=== PATIENT | male | born 1930 | race Caucasian/White ===

== ENCOUNTER → 2017-03-22 12:07 | Outpatient (CLI) | payer MEDICARE ==
[2015-01-11 09:47] VITALS: BMI 27.6
[~2017-03-22 12:07] MED LIST: ASPIRIN EC81 M1 PO; COLACE100 MG PO; COUMADIN2 MG PO; COUMADIN2.5 MG PO; COUMADIN6 MG PO; DEXAMETHASONE2 MG PO; DIPHEDRYL25 MG PO; FLOMAX0.4 MG PO; HEPARIN SOD5000 U/ML IV; HYDROCODON-ACE1 EAC6 PO; JANTOVEN1 MG PO; JANTOVEN3 MG PO; K-DUR20 MEQ PO; KEPPRA500 MG PO; LIPITOR40 MG PO; LOPRESSOR25 MG PO; METOPROLOL TART50 MG PO; PEPCID20 MG PO; PERCOCET 5-3251 TAB PO; SOMINEX PO; WARFARIN PO; ZESTORETIC 20-1 EACH PO
== END | disposition home or self-care (01) ==
LOC: D.US 12:07
DX: I65.23 Occlusion and stenosis of bilateral carotid arteries (principal); I73.9 Peripheral vascular disease, unspecified; M79.604 Pain in right leg

== ENCOUNTER → 2017-04-01 14:34 | Outpatient (CLI) | payer MEDICARE ==
[2015-01-11 09:47] VITALS: BMI 27.6
== END | disposition home or self-care (01) ==
LOC: D.CT 14:34
DX: I73.9 Peripheral vascular disease, unspecified (principal); M79.605 Pain in left leg; M79.604 Pain in right leg

== ENCOUNTER 2018-01-05 06:22 | Outpatient (CLI) | payer MEDICARE ==
[~2018-01-05] VITALS: Ht 175.3 cm; Wt 72.7 kg
--- NOTE | ~2018-01-05 | HEMODYNAMI ---
PATIENT:NIR ALVARADO MEDICAL RECORD: [id number] : 34 [id number] ADMISSION DATE: 01/05/18 Generatedon:01/05/201810:38 Patient name: NIR ALVARADO Patient #: [id number] SSN: DO B: 1930 Date of study: 01/05/2018 Page: Of Hemodynamic Procedure Report Patient Data Patient Demographics Procedure consent was obtained First Name: NIR Gender: Male Last Name: JENNY : 1930 Middle Initial: L Age: 87 year(s) Patient #: [id number] Race: Unknown Additional ID: [id number] Contact details Address: [address] [place] [address] State: [place] City: [place] Zip code: [address] Past Medical History Allergies: No known allergies Admission Admission Data Admission Date: 01/05/2018 Admission Time: 6:22 Height (in.): 69 BSA: 1.88 (m2) Height (cm.): 175.26 BMI: 23.63 (kg/m2) Weight (lbs.): 160 Weight (kg.): 72.57 Procedure Procedure Types Cath Procedure Peripheral Cath Diagnostic Procedure Drone Operator Peripheral Procedures Abd/Extremity Extremities Bilat Lower Extremity Procedure Description Procedure Date Procedure Date: 01/05/2018 Procedure Start Time: 9:18 Procedure Staff Name Function Maxi Melendez MD Ordering physician Dex Humphrey MD Performing Physician Monserrat Walter RT Finger Lift Operator Amy Stockton RN Nurse Joanna Flanagan RN Nurse Getachew Trevino RT Scrub Procedure Data Cath Procedure Fluoroscopy Diagnostic fluoroscopy Total fluoroscopy Time: 10 time: 10 min min Diagnostic fluoroscopy Total fluoroscopy dose: dose: 1268 mGy 1268 mGy Contrast Material Contrast Material Type Amount (ml) Isovue 300 165 Diagnostic catheters Device Type Used For End Catheter Placement Merit ULTRA BOLUS FLUSH 5Fr 90CM catheter ([id number]) Merit Impress Du 5FR. 100CM catheter ([id number]) Procedure Medications Medication Administration Route Dosage Heparin Flush Bag added to field 3 bags (1000units/500ml NS) Lidocaine 1% added to field 20 Oxygen etCO2 Nasal cannula 3 l/min Versed I.V. 1 mg Fentanyl I.V. 50 mcg Versed I.V. 1 mg Fentanyl I.V. 50 mcg Nitroglycerin IC/IA I.A. 200 mcg Heparin Bolus I.V. 5000 units Hemodynamics Rest BSA: 1.88 (m2) O2 Consumption: Estimated: 225.86 (ml/min) O2 Consumption indexed : Estimated:120.14 (ml/min/m) Heart Rate: 88 (bpm) Snapshots Pre Cath Intra NCS Post Cath Vital Signs Time Heart Resp SPO2 etCO2 NIBP (mmHg) Rhythm Pain Sedation Rate (ipm) (%) (mmHg) Status Level (bpm) 8:52:17 75 15 100 32.9 128/71(93) NSR 0 (11) 10(A) , No pain 8:56:54 75 11 100 29.2 120/63(100) NSR 0 (11) 10(A) , No pain 9:01:10 74 20 100 32.2 119/69(90) NSR 0 (11) 10(A) , No pain 9:05:22 75 21 100 31.4 113/71(93) NSR 0 (11) 10(A) , No pain 9:09:36 76 23 100 30.7 115/64(85) NSR 0 (11) 10(A) , No pain 9:13:50 77 20 100 29.2 110/66(84) NSR 0 (11) 10(A) , No pain 9:17:57 78 12 100 27.7 124/73(104) NSR 0 (11) 10(A) , No pain 9:22:09 77 23 100 30.7 115/77(95) NSR 0 (11) 10(A) , No pain 9:26:22 76 21 35.2 114/68(92) NSR 0 (11) 8(A) , No pain 9:30:31 74 19 100 35.9 110/67(96) NSR 0 (11) 8(A) , No pain 9:34:41 75 19 100 35.9 107/63(93) NSR 0 (11) 8(A) , No pain 9:38:51 73 19 99 36.7 107/64(89) NSR 0 (11) 8(A) , No pain 9:43:01 76 20 99 27.7 108/63(85) NSR 0 (11) 8(A) , No pain 9:47:11 78 20 100 32.2 96/59(81) NSR 0 (11) 8(A) , No pain 9:51:17 73 18 99 32.2 105/61(76) NSR 0 (11) 8(A) , No pain 9:55:24 76 20 98 23.9 110/64(81) NSR 0 (11) 8(A) , No pain 9:59:36 75 23 99 28.4 101/61(87) NSR 0 (11) 8(A) , No pain 10:03:46 85 15 97 0 99/53(74) NSR 0 (11) 8(A) , No pain 10:07:54 80 15 98 0 87/57(74) NSR 0 (11) 8(A) , No pain 10:11:58 78 15 98 32.9 92/55(69) NSR 0 (11) 8(A) , No pain 10:16:04 82 16 98 0 101/58(73) NSR 0 (11) 8(A) , No pain 10:20:11 91 15 98 0 107/58(80) NSR 0 (11) 8(A) , No pain 10:24:21 76 18 99 30.7 110/62(89) NSR 0 (11) 8(A) , No pain 10:28:33 74 18 99 34.4 119/60(74) NSR 0 (11) 8(A) , No pain 10:32:45 76 18 99 34.4 107/64(88) NSR 0 (11) 8(A) , No pain 10:36:47 76 18 99 31.4 125/81(115) NSR 0 (11) 8(A) , No pain Medications Time Medication Route Dose Verified Delivered Reason Notes Effe ctiveness by by 8:51:28 Heparin Flush added 3 Dex Kowalski used for Bag to bags Milagro Humphrey MD procedure (1000units/500ml field NS) 8:51:41 Lidocaine 1% added 20ml Dex Kowalski used for to vial Milagro Humphrey MD procedure field 8:51:59 Oxygen etCO2 3 Dex Amy used for Nasal l/min Mahin Humphrey RN procedure cannula 9:25:44 Versed I.V. 1 mg Dex Reyes for Mahin Humphrey RN sedation 9:25:55 Fentanyl I.V. 50 Dex Reyes for mcg Mahin Humphrey RN sedation 9:38:28 Versed I.V. 1 mg Dex Reyes for Mahin Humphrey RN sedation 9:38:35 Fentanyl I.V. 50 Dex Reyes for mcg Mahin Humphrey RN sedation 9:47:49 Nitroglycerin I.A. 200 Dex Dex IC/IA mcg Milagro Humphrey MD MD 10:02:56 Heparin Bolus I.V. 5000 Dex Reyes units Mahin Humphrey RN, MD Procedure Log Time Note 8:27:40 Patient Height : 69 inches 8:27:47 Patient Weight : 160 lbs 8:28:32 Time tracking: Regular hours (M-F 7:00 - 5:00) 8:31:16 Patient received from Outpatients to IR Alert and oriented. Tansferred to table in Supine position. 8:31:18 Signed procedure consent form obtained from patient. 8:31:24 H&P Date Dictated: 01/05/2018 Within 30 days and on chart.. 8:31:26 Pre-procedure instructions explained to patient. 8:31:27 Pre-op teaching completed and patient verbalized understanding. 8:31:29 Family in waiting room. 8:31:32 Patient NPO since Midnight. 8:31:40 Patient allergic to No known allergies 8:31:43 Is the patient allergic to Iodine/contrast media? No. 8:31:46 Is patient on blood thinner?No 8:31:48 Patient diabetic? Yes. 8:31:50 If diabetic: On Metformin? Yes 8:32:18 If on Metformin: Last Dose? 01/04/2018 8:32:23 - 8:32:24 ----Pre-sedation anethsthesia assessment.---- 8:32:27 Previous problem with sedation/anesthesia? No ? 8:32:30 Snore? Yes 8:32:32 Sleep apnea? No 8:32:34 Deviated septum? No 8:32:36 Opens mouth fully? Yes 8:32:37 Sticks out tongue? Yes 8:32:47 Airway obstruction? Yes previous lung ca 8:32:53 Dentures? No ? 8:33:07 IV patent on arrival in left hand with D5/.45%NaCl at KVO. 8:33:14 Left groin area was prepped with chlora-prep and draped in sterile fashion 8:33:16 - 8:33:21 Use device set IR Diagnostic 8:34:04 TUBING Contrast Injection High Pressure ([id number]) opened to sterile field. 8:34:04 DOC .035 wire ([id number]) opened to sterile field. 8:34:07 AGUILLON 260 wire (Z97980) opened to sterile field. 8:34:07 SHEATH 5FR Byers (GSB548) opened to sterile field. 8:34:08 Micropuncture VSI 4FR kit opened to sterile field. 8:34:09 Angiodynamics Omniflush 5Fr 65cm ([id number]) opened to sterile field. 8:34:10 Tegaderm 4 x 4 (1626W) opened to sterile field. 8:34:11 Sterile Angiographic Pack opened to sterile field. 8:34:12 Bag Decanter () opened to sterile field. 8:34:13 ACIST Manifold (22448) opened to sterile field. 8:34:14 ACIST Hand Control (41012) opened to sterile field. 8:34:15 ACIST Syringe (58389) opened to sterile field. 8:34:49 - 8:48:21 Pre procedure: right dorsailis pedis pulse 1+ Palpable, but thready & weak; easily obliterated 8:48:27 Pre procedure: left dorsailis pedis pulse 1+ Palpable, but thready & weak; easily obliterated 8:48:34 Pre procedure: right posterior tibial pulse Doppler 8:48:39 Pre procedure: left posterior tibial pulse Doppler 8:50:50 ECG and BP/O2 sat monitors applied to patient. 8:51:03 Vital chart was started 8:51:06 Baseline sample Acquired. 8:51:08 Full Disclosure recording started 8:51:20 - 8:51:28 Heparin Flush Bag (1000units/500ml NS) 3 bags added to field was administered by Dex Humphrey MD; used for procedure; 8:51:41 Lidocaine 1% 20ml vial added to field was administered by Dex Humphrey MD; used for procedure; 8:51:59 Oxygen 3 l/min etCO2 Nasal cannula was administered by Amy Stockton RN ; used for procedure; 9:15:30 Physician arrived 9:16:40 --------ALL STOP TIME OUT------ :16:40 Final Timeout: patient, procedure, and site verified with staff and physician. All members of the team are in agreement. 9:18:20 Procedure started. 9:18:49 Local anesthetic to right femoral artery with Lidocaine 1% by Dex Humphrey MD.INITIAL ACCESS ONLY 9:20:18 Arterial access obtained using ultrasound guidance. 9:25:38 - 9:25:44 Versed 1 mg I.V. was administered by Amy Stockton RN; for sedation; 9:25:51 Left Arm area was prepped with chlora-prep and draped in sterile fashio n 9:25:55 Fentanyl 50 mcg I.V. was administered by Amy Stockton RN; for sedation ; 9:29:25 GLIDE CATHETER 5FR COBRA 65cm (CG502) opened to sterile field. 9:36:40 GLIDE WIRE ANGLE 260cm (TI1385) opened to sterile field. 9:36:58 TORQUE DEVICE PLASTIC .038 ( TD01) opened to sterile field. 9:38:28 Versed 1 mg I.V. was administered by Amy Stockton RN; for sedation; 9:38:35 Fentanyl 50 mcg I.V. was administered by Amy Stockton RN; for sedation ; 9:39:01 A The Kernel ULTRA BOLUS FLUSH 5Fr 90CM catheter ([id number]) was advanced over the wire and used for . 9:45:42 A The Kernel Impress Du 5FR. 100CM catheter ([id number]) was advanced over the wire and used for . 9:47:49 Nitroglycerin IC/IA 200 mcg I.A. was administered by Dex Humphrey MD; ; 9:49:49 unable to obtain access in rt groin. prepped left arm and obatined access. 10:00:00 INFLATOR BasixTOUCH (TC6936) opened to sterile field. 10:01:16 Cook RAABE 6FR. 90cm guide sheath opened to sterile field. 10:02:56 Heparin Bolus 5000 units I.V. was administered by Amy Stockton RN; ; 10:08:15 CXI SUPPORT .035 135 CM STR catheter ([id number]) opened to sterile field. 10:13:20 Inflate balloon Inflation number: 1 A Evercross 4 x 6 x 135 Balloon ([id number]) was prepped and advanced across the Undefined1, then inflated. 10:16:46 Inflate balloon Inflation number: 2 A IN.PACT Admiral 5 x 80 x 130 DCB Balloon ([id number]) was prepped and advanced across the Undefined1, then inflated. 10:26:52 Inflate balloon Inflation number: 3 A Evercross 6 x 6 x 135 Balloon ([id number]) was prepped and advanced across the Undefined1, then inflated . 10:34:46 Procedure ended.(Physican Out) 10:35:00 Fluoroscopy time 10.00 minutes. 10:35:06 Fluoroscopy dose: 1268 mGy 10:35:06 Flurop Dose total: 1268 10:35:22 Contrast amount:Isovue 300 165ml. 10:35:25 Procedure and supply charges have been captured, reviewed, submitted an d are correct. 10:37:57 Report given to Outpatients. 10:38:37 Vital chart was stopped Intervention Summary Intervention Notes Time ActionType Lesion and Equipment Used Action# Pressure Duration Attributes 10:13:20 Inflate Undefined1 Evercross 4 x 6 1 0 00:00 balloon x 135 Balloon ([id number]) 10:16:46 Inflate Undefined1 IN.PACT Admiral 2 0 00:00 balloon 5 x 80 x 130 DCB Balloon ([id number]) 10:26:52 Inflate Undefined1 Evercross 6 x 6 3 0 00:00 balloon x 135 Balloon ([id number]) Device Usage Item Name Manufacture Quantity Catalog Number Hospital Part Current Minimal Lot# / Charge Number Stock Stock Serial# Code TUBING Contrast [facility] 1 [id number] 050357 288304 406152 5 Injection High Pressure ([id number]) DOC .035 wire Cook Medical 1 A98737 264784 470293 5 (C10741) AGUILLON 260 wire Cook Medical 1 T34253 381033 32353 437760 5 3417949 (T88784) SHEATH 5FR Terumo 1 PLY427 113875 441434 402092 40 Byers (ENT989) Micropuncture VSI VASCULAR 1 7266V 824173 747332 5 VSI 4FR kit SOLUTIONS Angiodynamics Angiodynamics 1 [id number] 373331 317975 895850 5 Omniflush 5Fr 65cm ([id number]) Tegaderm 4 x 4 3M 1 1626W 486252 401901 638874 5 (1626W) Sterile Cardinal 1 [id number] 400446 860204 5 Angiographic Health Pack Bag Decanter Microtek 1 2002S 197377 29196 817927 5 (2001S) Medical Inc. ACIST Manifold Acist Medical 1 94849 326554 059474 856961 5 (37950) Systems Inc ACIST Hand Acist Medical 1 03159 853811 505355 993457 5 Control (31830) Systems Inc ACIST Syringe Acist Medical 1 63311 207066 193850 777287 20 (65895) Systems Inc GLIDE CATHETER Terumo 1 CG502 644686 733027 5 5FR COBRA 65cm (CG502) GLIDE WIRE Terumo 1 JI9342 055031 266689 724915 5 ANGLE 260cm (GJ4954) TORQUE DEVICE [place] 1 TD01 021486 495124 807084 5 PLASTIC .038 ( Scientific TD01) The Kernel ULTRA Binary Computer Solutions 1 [id number] 368479 373254 5 BOLUS FLUSH 5Fr 90CM catheter ([id number]) The Kernel Impress [facility] Mirovia Networks 1 151615VQR 785677 830928 5 Du 5FR. 100CM catheter ([id number]) YelloYello RAABE 6FR. Visual Networks 1 F79874 857269 761998 5 90cm guide sheath CXI SUPPORT Visual Networks 1 R04606 253155 502188 844966 5 [id number] .035 135 CM STR catheter (T54921) Evercross 4 x 6 Medtronic 1 [id number] 642926 043314 468966 5 [id number] x 135 Balloon ([id number]) INFLATOR [facility] [employer] 1 ZG5279 106816 316155 351823 5 BasixTOUCH (AK8842) IN.PACT Admiral Medtronic 1 [id number] 000455 221605 423385 5 [id number] 5 x 80 x 130 DCB Balloon ([id number]) Evercross 6 x 6 Medtronic 1 [id number] 269387 342307 5 [id number] x 135 Balloon ([id number]) Signature Audit Mobile Stage Time Signature Unsigned Intra-Procedure 01/05/2018 Monserrat Walter 10:38:32 AM RT(R) [address] [place] [address]
[2018-01-05 06:39] LABS: BASOPHILS 0.2 % (0-2); EOSINOPHILS 2.1 % (0-7); HEMATOCRIT 36.1 % (42.0-54.0); HEMOGLOBIN 11.9 g/dL (13.5-17.5); IMMATURE GRANULOCYTES 0.2 % (0-5); LYMPHOCYTES 11.7 % (15-50); MCH 33.9 pg (26.0-34.0); MCV 102.8 fL (80.0-100.0); MEAN PLATELET VOLUME 9.7 fL (7.4-10.4); MONOCYTES 9.2 % (2-11); NEUTROPHILS 76.6 % (40-80); RBC 3.51 10x6/uL (4.20-6.10); RDW 16.1 % (11.5-14.5); WBC 4.3 10x3/uL (4.8-10.8)
[2018-01-05 06:47] LABS: PLATELET COUNT 124 10x3/uL (130-400)
[2018-01-05 06:58] LABS: CALC OSMOLALITY 292 mosm/kg (275-300); CALCIUM 10.5 mg/dL (8.5-10.1); CARBON DIOXIDE 31.5 mmol/L (21.0-32.0); CHLORIDE - SERUM 107 mmol/L (98-107); CREATININE - SERUM 0.9 mg/dL (0.6-1.3); GLUCOSE 146 mg/dL (74-106); POTASSIUM - SERUM 4.8 mmol/L (3.5-5.1); SODIUM 144 mmol/L (136-145); UREA NITROGEN 22 mg/dL (7-18); eGFR NON AFRICAN AMERICAN 85 mL/min (90-120)
[2018-01-05 07:02] LABS: APTT 26.9 SECONDS (22.8-39.4); INR 1.04 (0.85-1.17); PROTIME 13.2 SECONDS (11.6-15.0)
[2018-01-05] MEDS ORDERED: KLOR-CON M2020 MEQ PO (07:42)
[2018-01-05] MEDS ORDERED: LASIX40 MG PO (07:42)
[2018-01-05] MEDS ORDERED: GLUCOPHAGE500 MG (07:43)
[2018-01-05] MEDS ORDERED: MELATONIN10 M1 PO (07:44)
[2018-01-05 07:54] VITALS: BP 98/57; Ht 175.3 cm; Wt 72.7 kg
== END 2018-01-05 15:00 | disposition home or self-care (01) ==
LOC: D.SP 06:22 → D.RAD 09:00 → D.SP 09:00
PROVIDERS: General Practice
DX: I70.221 Atherosclerosis of native arteries of extremities with rest pain, right leg (principal); Z01.812 Encounter for preprocedural laboratory examination

== ENCOUNTER 2018-02-11 08:49 | Outpatient (CLI) | payer MEDICARE ==
[2018-02-11 09:17] LABS: BASOPHILS 0.2 % (0-2); EOSINOPHILS 1.8 % (0-7); HEMATOCRIT 39.8 % (42.0-54.0); HEMOGLOBIN 13.2 g/dL (13.5-17.5); LYMPHOCYTES 8.4 % (15-50); MCH 33.7 pg (26.0-34.0); MCHC 33.2 g/dL (31.0-37.0); MCV 101.5 fL (80.0-100.0); MEAN PLATELET VOLUME 9.6 fL (7.4-10.4); MONOCYTES 7.5 % (2-11); NEUTROPHILS 82.1 % (40-80); PLATELET COUNT 144 10x3/uL (130-400); RBC 3.92 10x6/uL (4.20-6.10); RDW 13.7 % (11.5-14.5); WBC 5.7 10x3/uL (4.8-10.8)
[2018-02-11 09:19] LABS: CALC OSMOLALITY 287 mosm/kg (275-300); CALCIUM 10.5 mg/dL (8.5-10.1); CARBON DIOXIDE 33.7 mmol/L (21.0-32.0); CHLORIDE - SERUM 104 mmol/L (98-107); CREATININE - SERUM 0.9 mg/dL (0.6-1.3); GLUCOSE 137 mg/dL (74-106); POTASSIUM - SERUM 4.4 mmol/L (3.5-5.1); SODIUM 142 mmol/L (136-145); UREA NITROGEN 22 mg/dL (7-18); eGFR NON AFRICAN AMERICAN 85 mL/min (90-120)
[2018-02-11 09:20] LABS: APTT 30.3 SECONDS (22.8-39.4); INR 1.1 (0.85-1.17); PROTIME 13.7 SECONDS (11.6-15.0)
== END 2018-02-11 18:10 | disposition home or self-care (01) ==
LOC: D.SP 08:49
PROVIDERS: General Practice
DX: I70.211 Atherosclerosis of native arteries of extremities with intermittent claudication, right leg (principal); Z01.812 Encounter for preprocedural laboratory examination

== ENCOUNTER → 2018-12-26 21:15 | Outpatient (CLI) | payer MEDICARE ==
[2018-02-11 09:40] VITALS: BMI 23.5
[~2018-12-26 21:15] MED LIST changes: +GLUCOPHAGE500 MG; +KLOR-CON M2020 MEQ PO; +LASIX40 MG PO; +MELATONIN10 M1 PO
[2018-12-26 22:00] LABS: BASOPHILS 0.2 % (0-2); EOSINOPHILS 0.6 % (0-7); HEMATOCRIT 26.8 % (42.0-54.0); HEMOGLOBIN 8.5 g/dL (13.5-17.5); IMMATURE GRANULOCYTES 0.3 % (0-5); LYMPHOCYTES 8.5 % (15-50); MCH 32.9 pg (26.0-34.0); MCHC 31.7 g/dL (31.0-37.0); MCV 103.9 fL (80.0-100.0); MEAN PLATELET VOLUME 10.8 fL (7.4-10.4); MONOCYTES 6.8 % (2-11); NEUTROPHILS 83.6 % (40-80); PLATELET COUNT 216 10x3/uL (130-400); RBC 2.58 10x6/uL (4.20-6.10); RDW 15.7 % (11.5-14.5); WBC 6.4 10x3/uL (4.8-10.8)
== END | disposition home or self-care (01) ==
LOC: D.LABREF 21:15
PROVIDERS: ATTEND Internal Medicine Cardiovascular Disease
DX: I48.91 Unspecified atrial fibrillation (principal); I10 Essential (primary) hypertension; I35.0 Nonrheumatic aortic (valve) stenosis

== ENCOUNTER 2019-05-07 12:04 | Inpatient (IN) | payer MEDICARE ==
[~2019-05-07] VITALS: Ht 175.3 cm; Wt 64.9 kg
[2019-05-07 12:40] LABS: BASOPHILS 0.1 % (0-2); EOSINOPHILS 0.3 % (0-7); HEMATOCRIT 44.6 % (42.0-54.0); HEMOGLOBIN 14.7 g/dL (13.5-17.5); IMMATURE GRANULOCYTES 0.1 % (0-5); LYMPHOCYTES 7.3 % (15-50); MCH 32.7 pg (26.0-34.0); MCV 99.1 fL (80.0-100.0); MEAN PLATELET VOLUME 10.5 fL (7.4-10.4); MONOCYTES 7.6 % (2-11); NEUTROPHILS 84.6 % (40-80); PLATELET COUNT 132 10x3/uL (130-400); RDW 14.6 % (11.5-14.5); WBC 6.7 10x3/uL (4.8-10.8)
[2019-05-07 12:47] LABS: CALC OSMOLALITY 282 mosm/kg (275-300); CALCIUM 9.7 mg/dL (8.5-10.1); CARBON DIOXIDE 31.5 mmol/L (21.0-32.0); CHLORIDE - SERUM 105 mmol/L (98-107); CREATININE - SERUM 0.7 mg/dL (0.6-1.3); GLUCOSE 100 mg/dL (74-106); POTASSIUM - SERUM 4.7 mmol/L (3.5-5.1); SODIUM 141 mmol/L (136-145); UREA NITROGEN 17 mg/dL (7-18); eGFR NON AFRICAN AMERICAN > 90 mL/min (90-120)
[2019-05-07 12:49] LABS: APTT 37.9 SECONDS (22.8-39.4); INR 2.21 (0.85-1.17); PROTIME 24.2 SECONDS (11.6-15.0)
[2019-05-07 12:50] LABS: D-DIMER-QUANTITATIVE 3.8 ug/mLFEU (0.20-0.54)
[2019-05-07 13:03] LABS: ALBUMIN 3.5 g/dL (3.4-5.0); ALKALINE PHOSPHATASE 77 U/L (30-120); ALT (SGPT) 62 U/L (10-68); BILIRUBIN - TOTAL 0.91 mg/dL (0.2-1.3); CREATINE KINASE 44 UL (21-232); MAGNESIUM - SERUM 2.1 mg/dL (1.8-2.4)
[2019-05-07 13:10] LABS: TROPONIN-I < 0.017 ng/mL (0.000-0.060)
--- NOTE | 2019-05-07 14:30 | NUR ---
EDP, MONALISA, AT BEDSIDE UPDATING PT AND FAMILY ON POC.
[2019-05-07 14:33] VITALS: BP 135/75
[2019-05-07 14:58] VITALS: BP 131/68
[2019-05-07 16:24] VITALS: BP 143/74; BMI 21.1
--- NOTE | 2019-05-07 16:34 | NUR ---
PATIENT ADMITTED TO ROOM 2239. ADMISSION COMPLETE. DENIES NEEDS. WILL CONTINUE TO MONITOR.
--- NOTE | 2019-05-07 16:57 | NUR ---
TELEMETRY PLACED ON PATIENT.
[2019-05-07 20:00] VITALS: BP 134/60
--- NOTE | 2019-05-07 22:17 | NUR ---
PATIENT SITTING UP IN CHAIR, A&0. NO SIGNS OF ACUTE DISTRESS NOTED. IV TO LEFT FA, NO REDNESS OR SWELLING. 2L NS. ENCOURAGED PATIENT TO CALL WITH ANY NEEDS. CHAIR LOCKED. BED IN LOW POSITION, RAILS X2. BEDSIDE TABLE AND CALL LIGHT WITHIN REACH.
[2019-05-08] VITALS: BP 121/69
[2019-05-08 04:00] VITALS: BP 135/59
[2019-05-08 06:19] LABS: BASOPHILS 0 % (0-2); EOSINOPHILS 1.9 % (0-7); HEMATOCRIT 40.3 % (42.0-54.0); HEMOGLOBIN 13.2 g/dL (13.5-17.5); IMMATURE GRANULOCYTES 0.2 % (0-5); LYMPHOCYTES 11.3 % (15-50); MCH 32.3 pg (26.0-34.0); MCHC 32.8 g/dL (31.0-37.0); MCV 98.5 fL (80.0-100.0); MONOCYTES 13.3 % (2-11); NEUTROPHILS 73.3 % (40-80); RBC 4.09 10x6/uL (4.20-6.10); RDW 14.5 % (11.5-14.5); WBC 5.1 10x3/uL (4.8-10.8)
[2019-05-08 06:32] LABS: PLATELET COUNT 101 10x3/uL (130-400)
[2019-05-08 06:36] LABS: INR 2.31 (0.85-1.17); PROTIME 25.1 SECONDS (11.6-15.0)
[2019-05-08 06:40] LABS: APTT 57.9 SECONDS (22.8-39.4)
[2019-05-08 07:08] LABS: ALKALINE PHOSPHATASE 63 U/L (30-120); BILIRUBIN - TOTAL 0.76 mg/dL (0.2-1.3); CALC OSMOLALITY 284 mosm/kg (275-300); CALCIUM 9.2 mg/dL (8.5-10.1); CARBON DIOXIDE 31.8 mmol/L (21.0-32.0); CHLORIDE - SERUM 107 mmol/L (98-107); CKMB 1.4 U/L (0.0-3.6); CREATINE KINASE 26 UL (21-232); CREATININE - SERUM 0.7 mg/dL (0.6-1.3); GLUCOSE 96 mg/dL (74-106); PHOSPHOROUS 2.5 mg/dL (2.5-4.9); POTASSIUM - SERUM 4.5 mmol/L (3.5-5.1); PROTEIN - SERUM 5.9 g/dL (6.4-8.2); SODIUM 142 mmol/L (136-145); UREA NITROGEN 17 mg/dL (7-18); eGFR NON AFRICAN AMERICAN > 90 mL/min (90-120)
[2019-05-08 07:09] LABS: ALT (SGPT) 43 U/L (10-68); TROPONIN-I < 0.017 ng/mL (0.000-0.060)
[2019-05-08 08:39] VITALS: BP 101/60
[2019-05-08 12:53] VITALS: BP 142/70
[2019-05-08 14:32] VITALS: BMI 21.1
[2019-05-08 16:01] VITALS: BP 127/69
--- NOTE | 2019-05-08 16:24 | NUR ---
I have reviewed this patient and I concur with the Shift Assessment completed by the Licensed Practical Nurse today this shift.
[2019-05-08 20:00] VITALS: BP 174/93
[2019-05-09] VITALS (9 sets, daily range): BP systolic 105–174; BP diastolic 52–84; Ht 175.3 cm; Wt 64.9 kg
[2019-05-09 05:14] LABS: BASOPHILS 0.2 % (0-2); EOSINOPHILS 3.8 % (0-7); HEMOGLOBIN 13.5 g/dL (13.5-17.5); IMMATURE GRANULOCYTES 0.2 % (0-5); LYMPHOCYTES 9.5 % (15-50); MCH 32.2 pg (26.0-34.0); MCHC 32.1 g/dL (31.0-37.0); MCV 100.2 fL (80.0-100.0); MEAN PLATELET VOLUME 10.1 fL (7.4-10.4); NEUTROPHILS 76.3 % (40-80); PLATELET COUNT 115 10x3/uL (130-400); RBC 4.19 10x6/uL (4.20-6.10); RDW 14.5 % (11.5-14.5); WBC 5.3 10x3/uL (4.8-10.8)
[2019-05-09 05:43] LABS: INR 1.57 (0.85-1.17); PROTIME 18.6 SECONDS (11.6-15.0)
[2019-05-09 05:55] LABS: ALBUMIN 2.9 g/dL (3.4-5.0); ALKALINE PHOSPHATASE 59 U/L (30-120); ALT (SGPT) 39 U/L (10-68); BILIRUBIN - TOTAL 0.72 mg/dL (0.2-1.3); CALC OSMOLALITY 281 mosm/kg (275-300); CALCIUM 9.3 mg/dL (8.5-10.1); CARBON DIOXIDE 34.5 mmol/L (21.0-32.0); CHLORIDE - SERUM 106 mmol/L (98-107); CREATININE - SERUM 0.7 mg/dL (0.6-1.3); GLUCOSE 104 mg/dL (74-106); POTASSIUM - SERUM 4.6 mmol/L (3.5-5.1); PROTEIN - SERUM 6.4 g/dL (6.4-8.2); SODIUM 141 mmol/L (136-145); UREA NITROGEN 16 mg/dL (7-18); eGFR NON AFRICAN AMERICAN > 90 mL/min (90-120)
--- NOTE | 2019-05-09 07:30 | NUR ---
ALERT AND ORIENTED. IV TO LEFT FOREARM, SL. SITE PATENT WITHOUT REDNESS OR SWELLING. NO C/O PAIN. NO S/S OF ACUTE DISTRESS NOTED. ON 2L O2, NC. ON TELEMETRY 74 SR. DENIES ANY NEEDS AT THIS TIME. CALL LIGHT IN REACH. WILL CONTINUE TO MONITOR.
--- NOTE | 2019-05-09 15:23 | NUR ---
I have reviewed this patient and I concur with the Shift Assessment completed by the Licensed Practical Nurse today this shift.
--- NOTE | 2019-05-09 18:59 | NUR ---
ALERT AND ORIENTED. NO C/O PAIN. NO S/S OF ACUTE DISTRESS NOTED. DENIES ANY NEEDS AT THIS TIME. CALL LIGHT IN REACH. WILL CONTINUE TO MONITOR.
[2019-05-10] VITALS (9 sets, daily range): BP systolic 103–126; BP diastolic 40–66
--- NOTE | 2019-05-10 07:25 | NUR ---
ALERT AND ORIENTED, RESTING IN BED. [place]. NPO SINCE MIDNIGHT. SCHEDULED FOR A BEDSIDE THORACENTESIS WITH DR. CHAHAL TODAY. NO C/O PAIN. NO S/S OF ACUTE DISTRESS NOTED. IV TO LEFT FOREARM, SL. SITE PATENT WITHOUT REDNESS OR SWELLING. ON 3L O2, NC. ON TELEMETRY SR 77 WITH PVCS. DENIES ANY NEEDS AT THIS TIME. CALL LIGHT IN REACH. WILL CONTINUE TO MONITOR.
[2019-05-10 07:48] LABS: BASOPHILS 0 % (0-2); EOSINOPHILS 3.5 % (0-7); HEMATOCRIT 42.3 % (42.0-54.0); HEMOGLOBIN 13.7 g/dL (13.5-17.5); IMMATURE GRANULOCYTES 0.2 % (0-5); LYMPHOCYTES 10.2 % (15-50); MCH 33.1 pg (26.0-34.0); MCHC 32.4 g/dL (31.0-37.0); MEAN PLATELET VOLUME 10.2 fL (7.4-10.4); MONOCYTES 7.6 % (2-11); NEUTROPHILS 78.5 % (40-80); PLATELET COUNT 117 10x3/uL (130-400); RBC 4.14 10x6/uL (4.20-6.10); RDW 14.5 % (11.5-14.5); WBC 4.6 10x3/uL (4.8-10.8)
[2019-05-10 08:04] LABS: MCV 102.2 fL (80.0-100.0)
[2019-05-10 08:14] LABS: ALKALINE PHOSPHATASE 59 U/L (30-120); ALT (SGPT) 32 U/L (10-68); BILIRUBIN - TOTAL 0.69 mg/dL (0.2-1.3); CALC OSMOLALITY 285 mosm/kg (275-300); CALCIUM 9.2 mg/dL (8.5-10.1); CARBON DIOXIDE 35.9 mmol/L (21.0-32.0); CHLORIDE - SERUM 107 mmol/L (98-107); CREATININE - SERUM 0.7 mg/dL (0.6-1.3); GLUCOSE 93 mg/dL (74-106); POTASSIUM - SERUM 4.6 mmol/L (3.5-5.1); SODIUM 143 mmol/L (136-145); UREA NITROGEN 16 mg/dL (7-18); eGFR NON AFRICAN AMERICAN > 90 mL/min (90-120)
[2019-05-10 08:23] LABS: PROTIME 15.5 SECONDS (11.6-15.0)
[2019-05-10 08:25] LABS: INR 1.24 (0.85-1.17)
--- NOTE | 2019-05-10 08:47 | NUR ---
I have reviewed this patient and I concur with the Shift Assessment completed by the Licensed Practical Nurse today this shift.
[2019-05-10 12:55] LABS: PROTEIN - BODY FLUID 3.6 G/DL
--- NOTE | 2019-05-10 16:27 | NUR ---
I have reviewed this patient and I concur with the Shift Assessment completed by the Licensed Practical Nurse today this shift.
[2019-05-10 17:56] LABS: EOS BF 7 %; MACROPHAGES BF 22 %; NEUT - BF 69 %
--- NOTE | 2019-05-10 18:29 | NUR ---
ALERT AND ORIENTED. NO C/O PAIN. NO S/S OF ACUTE DISTRESS NOTED. DENIES ANY NEEDS AT THIS TIME. CALL LIGHT IN REACH. WILL CONTINUE TO MONITOR.
--- NOTE | 2019-05-10 18:43 | NUR ---
IV IN LEFT FOREARM INFILTRATED. DISCONTINUED IV, CATHETER TIP INTACT. RESITED TO RIGHT FOREARM 22 GA X1 STICK, POSITIVE BLOOD RETURN.
--- NOTE | 2019-05-11 02:05 | NUR ---
I have reviewed this patient and I concur with the Shift Assessment completed by the Licensed Practical Nurse today this shift.
--- NOTE | 2019-05-11 03:06 | NUR ---
PT RESTING IN BED. EYES CLOSED. NO SIGNS OF DISTRESS. BREATHING EVEN AND UNLABORED. IV SITE RT FA DRESSING CLEAN DRY AND INTACT. NO SIGNS OF INFULTRATION OR INFECTION. BOWEL SOUNDS ACTIVE. TELE MONITOR ON 71 CONTROLLED A-FIB WITH BUNDLE BRANCH BLOCK. SKIN CLEAN DRY AND INTACT. BOWEL SOUNDS ACTIVE. NO LOWER LEG SWELLING PRESENT. WILL CONTINUE PLAN OF CARE. CALL LIGHT IN REACH. BED LOWERED AND LOCKED. BED RAILS UPX2.
[2019-05-11 04:00] VITALS: BP 106/59
[2019-05-11 05:18] LABS: BASOPHILS 0.3 % (0-2); EOSINOPHILS 5.5 % (0-7); HEMATOCRIT 39.1 % (42.0-54.0); HEMOGLOBIN 12.5 g/dL (13.5-17.5); IMMATURE GRANULOCYTES 0.3 % (0-5); LYMPHOCYTES 11.2 % (15-50); MCH 32.5 pg (26.0-34.0); MCV 101.6 fL (80.0-100.0); MONOCYTES 10.1 % (2-11); NEUTROPHILS 72.6 % (40-80); PLATELET COUNT 116 10x3/uL (130-400); RBC 3.85 10x6/uL (4.20-6.10); RDW 14.1 % (11.5-14.5); WBC 3.7 10x3/uL (4.8-10.8)
[2019-05-11 05:21] LABS: INR 1.18 (0.85-1.17); PROTIME 14.9 SECONDS (11.6-15.0)
[2019-05-11 05:37] LABS: ALBUMIN 2.8 g/dL (3.4-5.0); ALKALINE PHOSPHATASE 56 U/L (30-120); BILIRUBIN - TOTAL 0.75 mg/dL (0.2-1.3); CALC OSMOLALITY 283 mosm/kg (275-300); CALCIUM 9.3 mg/dL (8.5-10.1); CARBON DIOXIDE 33.3 mmol/L (21.0-32.0); CHLORIDE - SERUM 105 mmol/L (98-107); CREATININE - SERUM 0.8 mg/dL (0.6-1.3); GLUCOSE 119 mg/dL (74-106); LDH 150 U/L (85-227); POTASSIUM - SERUM 4.5 mmol/L (3.5-5.1); PROTEIN - SERUM 6.1 g/dL (6.4-8.2); SODIUM 141 mmol/L (136-145); UREA NITROGEN 17 mg/dL (7-18); eGFR NON AFRICAN AMERICAN > 90 mL/min (90-120)
[2019-05-11 05:40] LABS: ALT (SGPT) 23 U/L (10-68)
--- NOTE | 2019-05-11 07:05 | NUR ---
ALERT AND ORIENTED, SITTING UP IN CHAIR. NO C/O PAIN. NO S/S OF ACUTE DISTRESS NOTED. [place]. IV TO RIGHT FOREARM, SL. SITE PATENT WITHOUT REDNESS OR SWELLING. ON TELEMETRY SR 68 WITH BBB. DENIES ANY NEEDS AT THIS TIME. CALL LIGHT IN REACH. WILL CONTINUE TO MONITOR.
--- NOTE | 2019-05-11 08:36 | MORECARE ---
CASE MANAGEMENT DISCHARGE SUMMARY PATIENT: NIR IZQUIERDO UNIT: [id number] ADM DATE: 05/07/19 AGE: 88 : [birth year] SEX: M ROOM/BED: D.2239 AUTHOR: FILIBERTO,DOC PHYSICIAN: REFERRING PHYSICIAN: RAJ SPIVEY MD DATE OF SERVICE: 05/11/19 Discharge Plan Patient Name: NIR IZQUIERDO Facility: [facility]:[place] : 1930 Planned Disposition: Home Anticipated Discharge Date: 05/11/19 Discharge Date: Expected LOS: 4 Initial Reviewer: [email or web address] Initial Review Date: 05/11/2019 Generated: 05/11/19 9:35 am Comments DCP- Discharge Planning Updated by [email or web address]: Tamiko Macias on 05/11/19 7:[address] Patient Name: NIR IZQUIERDO Admission Status: ER Accout number: [id number] Admission Date: 05-07-2019 : 1930 Admission Diagnosis: Attending: RAJ SPIVEY Current LOS: 4 Anticipated DC Date: 05-11-2019 Planned Disposition: Home Primary Insurance: [employer] CHOICE PPO MCR [employer] Discharge Planning Comments: CM met with patient to complete initial dc planning assessment. CM educated patient on the CM role and verbal consent given by patient to complete assessment. Patient lives at home in [place] with his spouse. At discharge patient plans to return and feels this is a safe discharge. CM discussed availability of home health, rehab services, and medical equipment. Patient denied known discharge needs at this time. He is wearing oxygen right now, so I have ordered a walk test and informed his nurse. Patient states he has been walking "around the [place]" without his oxygen and has been fine. CM will continue to follow and will assist as needed with dc plans/needs. Standards Engineer: Tamiko Macias DCPIA - Discharge Planning Initial Assessment Updated by [email or web address]: Tamiko Macias on 05/11/19 8:33 am * Is the patient Alert and Oriented? Yes * How many steps to enter\\exit or inside your home? 4/0 * PCP Dr. German * [facility] * Preadmission Environment Home with Family * ADLs Independent * Equipment Other * Other Equipment Pulse oximeter Machine to check PT * List name and contact numbers for known caregivers / representatives who currently or will assist patient after discharge: Grazyna Izquierdo - [facility] - [phone] * Verbal permission to speak to the caregivers and representatives has been obtained from the patient. Yes * Community resources currently utilized None * Additional services required to return to the preadmission environment? No * Can the patient safely return to the preadmission environment? Yes * Has this patient been hospitalized within the prior 30 days at any hospital? No Coverage Notice Reviewer: [email or web address] Agata Macias Notice Issued Date-Time: 05/11/2019 8:35 Notice Type: IM Discharge Notice Notice Delivered To: Patient Relationship to Patient: Self Knockdown Worker Name: Delivery Method: - Shiela Days: Prior Verbal Notification: Recipient Understood Notice: Recipient Signature: Med Rec Note Co-signed by Attending: Coverage Notice Comment: Patient Name: NIR IZQUIERDO Page 21827 at 0836 All edits/amendments must be made on the electronic document DICTATION DATE: 05/11/19834 EXTENSION COURSE COORDINATOR: MARIA ESTHER 05/11/19834 RPT#: [id number] DC DATE: STATUS: ADM IN [facility] [address] [place] [address] END OF REPORT
--- NOTE | 2019-05-11 08:49 | MORECARE ---
CASE MANAGEMENT DISCHARGE SUMMARY PATIENT: NIR IZQUIERDO UNIT: [id number] ADM DATE: 05/07/19 AGE: 88 : 32 SEX: M ROOM/BED: D.2239 AUTHOR: FILIBERTODOC PHYSICIAN: REFERRING PHYSICIAN: RAJ SPIVEY MD DATE OF SERVICE: 05/11/19 Discharge Plan Patient Name: NIR IZQUIERDO Facility: [facility]:[place] : 1930 Planned Disposition: Home Anticipated Discharge Date: 05/11/19 Discharge Date: Expected LOS: 4 Initial Reviewer: [email or web address] Initial Review Date: 05/11/2019 Generated: 05/11/19 9:49 am Comments DCP- Discharge Planning Updated by [email or web address]: Tamiko Macias on 05/11/19 7:[address] Oxygen saturation is 95% on room air and 91% with ambulation. He does not qualify for home oxygen at this time. Patient states "I don't feel like I need oxygen." CM will continue to follow and assist with discharge planning/needs. DCP- Discharge Planning Updated by [email or web address]: Tamiko Macias on 05/11/19 7:[address] Patient Name: NIR IZQUIERDO Admission Status: ER Accout number: [id number] Admission Date: 05-07-2019 : 1930 Admission Diagnosis: Attending: RAJ SPIVEY Current LOS: 4 Anticipated DC Date: 05-11-2019 Planned Disposition: Home Primary Insurance: HU[employer]NA CHOICE PPO [facility] Discharge Planning Comments: CM met with patient to complete initial dc planning assessment. CM educated patient on the CM role and verbal consent given by patient to complete assessment. Patient lives at home in [place] with his spouse. At discharge patient plans to return and feels this is a safe discharge. CM discussed availability of home health, rehab services, and medical equipment. Patient denied known discharge needs at this time. He is wearing oxygen right now, so I have ordered a walk test and informed his nurse. Patient states he has been walking "around the [place]" without his oxygen and has been fine. CM will continue to follow and will assist as needed with dc plans/needs. Director Of Analytical Development: Tamiko Macias DCPIA - Discharge Planning Initial Assessment Updated by [id number]: Tamiko Macias on 05/11/19 8:33 am * Is the patient Alert and Oriented? Yes * How many steps to enter\\exit or inside your home? 4/0 * PCP Dr. German * Pharmacy [facility] * Preadmission Environment Home with Family * ADLs Independent * Equipment Other * Other Equipment Pulse oximeter Machine to check PT * List name and contact numbers for known caregivers / representatives who currently or will assist patient after discharge: Grazyna Izquierdo - spouse - [phone] * Verbal permission to speak to the caregivers and representatives has been obtained from the patient. Yes * Community resources currently utilized None * Additional services required to return to the preadmission environment? No * Can the patient safely return to the preadmission environment? Yes * Has this patient been hospitalized within the prior 30 days at any hospital? No Coverage Notice Reviewer: [id number] - Tamiko Macias Notice Issued Date-Time: 05/11/2019 8:35 Notice Type: IM Discharge Notice Notice Delivered To: Patient Relationship to Patient: Self Child Study Team Director Name: Delivery Method: HAND - Hand Delivered Shiela Days: Prior Verbal Notification: Recipient Understood Notice: Yes Recipient Signature: Yes Med Rec Note Co-signed by Attending: Coverage Notice Comment: IMM explained, signed, given, copy placed in MR Last DP export: 05/11/19 7:36 am Patient Name: NIR IZQUIERDO Page [phone] at 0849 All edits/amendments must be made on the electronic document DICTATION DATE: 05/11/19848 TELEPHONE ADVICE NURSE: MARIA ESTHER 05/11/1947 RPT#: [id number] DC DATE: STATUS: ADM IN [facility] [address] [place] [address] END OF REPORT
[2019-05-11 09:03] VITALS: BP 100/60
[2019-05-11 12:10] VITALS: BP 96/51
--- NOTE | 2019-05-11 14:54 | NUR ---
NUTRITION F/U CHART REVIEWED, PT VISIT. TOLERATING AHA DIET WITH 100% INTAKE RECENT MEALS. WILL CONTINUE TO PROVIDE DIET, MONITOR PO INTAKE. RD FOLLOWING
--- NOTE | 2019-05-11 15:00 | OP ---
PATIENT NAME: NIR ALVARADO MEDICAL RECORD: [id number] :[birth year] LOCATION:D.MS [address] ADMISSION DATE:05/07/19 SURGEON: MARY QUINTERO MD DATE OF OPERATION: 05/10/2019 SURGEON: Mary Quintero MD PROCEDURE PERFORMED: Left ultrasound-guided thoracentesis. INDICATION: Left pleural effusion. PROCEDURE NOTE: With the patient seated upright in the room and the heart rate, blood pressure, pulse oximetry monitored, ultrasound was used to localize the effusion. A posterior chest was sterilely prepped and draped, 1% Xylocaine used for local anesthetic and the effusion was localized over the superior surface of the rib using the small needle. A 2 mm skin incision was made. Thoracentesis catheter was inserted. A 500 cc of pleural fluid removed without complication. TRANSINT:[id number] Voice Confirmation ID: [id number] DOCUMENT ID: [id number] MARY QUINTERO MD at 1500 CC: [id number] DICTATION DATE: 05/11/19 0800 TWISTING MACHINE OPERATOR: 05/11/19 0909 ADM IN [facility] [address] [id number]
--- NOTE | 2019-05-11 15:56 | NUR ---
PATIENT REFUSED TELEMETRY, STATED HE HAS HAD IT ON FOR 4 DAYS AND DOESN'T WANT IT ON.
--- NOTE | 2019-05-11 16:10 | NUR ---
I have reviewed this patient and I concur with the Shift Assessment completed by the Licensed Practical Nurse today this shift.
[2019-05-11 17:24] VITALS: BP 141/84
--- NOTE | 2019-05-11 18:42 | NUR ---
ALERT AND ORIENTED. NO C/O PAIN. NO S/S OF ACUTE DISTRESS NOTED. DENIES ANY NEEDS AT THIS TIME. CALL LIGHT IN REACH. WILL CONTINUE TO MONITOR.
[2019-05-11 20:00] VITALS: BP 137/63
--- NOTE | 2019-05-12 02:40 | NUR ---
PT RESTING IN BED. EYES CLOSED. NO SIGNS OF DISTRESS. BREATHING EVEN AND UNLABORED. IV SITE LT FA DRESSING CLEAN DRY AND INTACT. NO SIGNS OF INFECTION OR INFULTRATION. SKIN CLEAN DRY AND INTACT. BOWEL SOUNDS ACTIVE. NO LOWER LEG SWELLING PRESENT. WILL CONTINUE PLAN OF CARE. CALL LIGHT IN REACH. BED LOWERED AND LOCKED.BED RAILS UPX2.
--- NOTE | 2019-05-12 03:02 | NUR ---
I have reviewed this patient and I concur with the Shift Assessment completed by the Licensed Practical Nurse today this shift.
[2019-05-12 04:00] VITALS: BP 104/61
[2019-05-12 06:14] LABS: BASOPHILS 0.3 % (0-2); EOSINOPHILS 5.9 % (0-7); HEMATOCRIT 39.7 % (42.0-54.0); HEMOGLOBIN 12.6 g/dL (13.5-17.5); IMMATURE GRANULOCYTES 0.3 % (0-5); LYMPHOCYTES 10.2 % (15-50); MCH 32.1 pg (26.0-34.0); MCHC 31.7 g/dL (31.0-37.0); MEAN PLATELET VOLUME 9.7 fL (7.4-10.4); MONOCYTES 8.5 % (2-11); NEUTROPHILS 74.8 % (40-80); PLATELET COUNT 124 10x3/uL (130-400); RBC 3.93 10x6/uL (4.20-6.10); RDW 14.1 % (11.5-14.5); WBC 3.5 10x3/uL (4.8-10.8)
[2019-05-12 06:35] LABS: ALBUMIN 2.8 g/dL (3.4-5.0); ALKALINE PHOSPHATASE 58 U/L (30-120); ALT (SGPT) 23 U/L (10-68); BILIRUBIN - TOTAL 0.51 mg/dL (0.2-1.3); CALC OSMOLALITY 285 mosm/kg (275-300); CARBON DIOXIDE 33.7 mmol/L (21.0-32.0); CHLORIDE - SERUM 107 mmol/L (98-107); CREATININE - SERUM 0.7 mg/dL (0.6-1.3); GLUCOSE 109 mg/dL (74-106); POTASSIUM - SERUM 4.5 mmol/L (3.5-5.1); PROTEIN - SERUM 5.8 g/dL (6.4-8.2); SODIUM 143 mmol/L (136-145); eGFR NON AFRICAN AMERICAN > 90 mL/min (90-120)
[2019-05-12 06:37] LABS: UREA NITROGEN 12 mg/dL (7-18)
[2019-05-12 08:44] VITALS: BP 124/85
--- NOTE | 2019-05-12 09:00 | NUR ---
ALERT AND ORIENTED X4. IV INTACT TO RT. F/A. LUNGS CTA X4 ANTERIOR WITH NODYSPNEA NOTED. HRRR WITH NO PERIPHERAL EDEMA NOTED. ENCOURAGED TO USE CALL LIGHT FOR ASSSIT.
[2019-05-12 10:45] LABS: ACID FAST SMEAR Negative (()); AFB SPECIMEN PROCESSING Not Indicated (())
[2019-05-12] MEDS ORDERED: LEVOFLOXACIN500 MG PO (11:13)
[2019-05-12] MEDS ORDERED: TESSALON PERLE100 MG PO (11:13)
[2019-05-12] MEDS ORDERED: CLEOCIN HCL300 MG PO (11:13)
[2019-05-12] MEDS ORDERED: MUCINEX DM ER1 EAC1 PO (11:13)
[2019-05-12 12:09] LABS: FUNGUS STAIN Final report (())
[2019-05-12 14:24] VITALS: BP 113/55
--- NOTE | 2019-05-12 15:08 | MORECARE ---
CASE MANAGEMENT DISCHARGE SUMMARY PATIENT: NIR IZQUIERDO UNIT: [id number] ADM DATE: 05/07/19 AGE: 88 : 34 SEX: M ROOM/BED: D.2239 AUTHOR: KRISH DE LOS SANTOS PHYSICIAN: REFERRING PHYSICIAN: RAJ SPIVEY MD DATE OF SERVICE: 05/12/19 Discharge Plan Patient Name: NIR IZQUIERDO Facility: [facility]:[place] : 1930 Planned Disposition: Home Anticipated Discharge Date: 05/11/19 Discharge Date: Expected LOS: 4 Initial Reviewer: [email or web address] Initial Review Date: 05/11/2019 Generated: 05/12/19 4:08 pm Comments DCP- Discharge Planning Updated by [email or web address]: Tamiko Chiaradarlin on 05/12/19 1:[address] Patient Name: NIR IZQUIERDO Encounter No: [id number] : 1930 Primary Insurance: [employer] P[employer] MCR [employer]VANT Anticipated DC Date: 05-11-2019 Planned Disposition: Home External Planned Provider: : DCP follow-up note: Patient and family in agreement with discharge plan. No changes to plan. Case management will follow and assist as needed. Tamiko Maicas DCP- Discharge Planning Updated by [email or web address]: Tamiko Macias on 05/11/19 7:[address] Oxygen saturation is 95% on room air and 91% with ambulation. He does not qualify for home oxygen at this time. Patient states "I don't feel like I need oxygen." CM will continue to follow and assist with discharge planning/needs. DCP- Discharge Planning Updated by [email or web address]: Tamiko Guadarramadarlin on 05/11/19 7:[address] Patient Name: NIR IZQUIERDO Admission Status: ER Accout number: [id number] Admission Date: 05-07-2019 : 1930 Admission Diagnosis: Attending: RAJ SPIVEY Current LOS: 4 Anticipated DC Date: 05-11-2019 Planned Disposition: Home Primary Insurance: [employer] PPO M[employer] Discharge Planning Comments: CM met with patient to complete initial dc planning assessment. CM educated patient on the CM role and verbal consent given by patient to complete assessment. Patient lives at home in [place] with his spouse. At discharge patient plans to return and feels this is a safe discharge. CM discussed availability of home health, rehab services, and medical equipment. Patient denied known discharge needs at this time. He is wearing oxygen right now, so I have ordered a walk test and informed his nurse. Patient states he has been walking "around the [place]" without his oxygen and has been fine. CM will continue to follow and will assist as needed with dc plans/needs. Toe Pounder: Tamiko Macias DCPIA - Discharge Planning Initial Assessment Updated by [email or web address]: Tamiko Macias on 05/11/19 8:33 am * Is the patient Alert and Oriented? Yes * How many steps to enter\\exit or inside your home? 4/0 * PCP Dr. German * Pharmacy [facility] * Preadmission Environment Home with Family * ADLs Independent * Equipment Other * Other Equipment Pulse oximeter Machine to check PT * List name and contact numbers for known caregivers / representatives who currently or will assist patient after discharge: Grazyna Izquierdo - spouse - [phone] * Verbal permission to speak to the caregivers and representatives has been obtained from the patient. Yes * Community resources currently utilized None * Additional services required to return to the preadmission environment? No * Can the patient safely return to the preadmission environment? Yes * Has this patient been hospitalized within the prior 30 days at any hospital? 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
--- NOTE | 2019-05-12 15:15 | NUR ---
IV DISCONTINUED AND VERBALIZED UNDERSTANDING OF DISCHARGE INSTRUCTIONS. STABLE AT TIME OF DEPARTURE.
== END 2019-05-12 15:15 | disposition home or self-care (01) | DRG 186 ==
LOC: D.ER 12:04 → D.MS 15:33 → D.ER 16:06 → D.MS 05-12 15:15
PROVIDERS: Emergency Medicine; Family Medicine; Internal Medicine Pulmonary Disease; ADMIT Internal Medicine Nephrology; ATTEND Internal Medicine Nephrology
PROC: 0W9930Z Drainage of Right Pleural Cavity with Drainage Device, Percutaneous Approach (ICD-10-PCS; principal; 2019-05-10)
DX: J94.2 Hemothorax (principal); J18.9 Pneumonia, unspecified organism; J44.1 Chronic obstructive pulmonary disease with (acute) exacerbation; J93.9 Pneumothorax, unspecified; I25.10 Atherosclerotic heart disease of native coronary artery without angina pectoris; Z85.118 Personal history of other malignant neoplasm of bronchus and lung; I48.91 Unspecified atrial fibrillation; I10 Essential (primary) hypertension; E78.5 Hyperlipidemia, unspecified; I73.9 Peripheral vascular disease, unspecified; Z79.01 Long term (current) use of anticoagulants; N40.0 Benign prostatic hyperplasia without lower urinary tract symptoms; M19.90 Unspecified osteoarthritis, unspecified site; I65.29 Occlusion and stenosis of unspecified carotid artery

== ENCOUNTER → 2019-05-29 09:09 | Outpatient (CLI) | payer MEDICARE ==
[2019-05-09 14:11] VITALS: BMI 21.1
[~2019-05-29 09:09] MED LIST changes: +CLEOCIN HCL300 MG PO; +LEVOFLOXACIN500 MG PO; +MUCINEX DM ER1 EAC1 PO; +TESSALON PERLE100 MG PO
== END | disposition home or self-care (01) ==
LOC: D.RAD 09:09
PROVIDERS: ATTEND Thoracic Surgery (Cardiothoracic Vascular Surgery)
DX: J90 Pleural effusion, not elsewhere classified (principal)

== ENCOUNTER 2019-08-01 15:57 | Inpatient (IN) | payer MEDICARE ==
[~2019-08-01] VITALS: Ht 175.3 cm; Wt 64.1 kg
[2019-08-01 16:35] LABS: BASOPHILS 0 % (0-2); HEMOGLOBIN 13.6 g/dL (13.5-17.5); IMMATURE GRANULOCYTES 0.2 % (0-5); LYMPHOCYTES 11.5 % (15-50); MCH 32.5 pg (26.0-34.0); MCHC 30.9 g/dL (31.0-37.0); MEAN PLATELET VOLUME 10.1 fL (7.4-10.4); MONOCYTES 9.8 % (2-11); NEUTROPHILS 73.5 % (40-80); PLATELET COUNT 118 10x3/uL (130-400); RBC 4.19 10x6/uL (4.20-6.10); RDW 13.7 % (11.5-14.5); WBC 4.2 10x3/uL (4.8-10.8)
[2019-08-01 16:54] LABS: APTT 39.5 SECONDS (22.8-39.4); INR 2.76 (0.85-1.17); PROTIME 28.7 SECONDS (11.6-15.0)
[2019-08-01 16:57] LABS: CALC OSMOLALITY 286 mosm/kg (275-300); CARBON DIOXIDE 39.5 mmol/L (21.0-32.0); CHLORIDE - SERUM 105 mmol/L (98-107); CREATININE - SERUM 0.9 mg/dL (0.6-1.3); GLUCOSE 85 mg/dL (74-106); POTASSIUM - SERUM 4.3 mmol/L (3.5-5.1); SODIUM 143 mmol/L (136-145); UREA NITROGEN 20 mg/dL (7-18); eGFR NON AFRICAN AMERICAN 85 mL/min (90-120)
[2019-08-01 17:15] LABS: ALBUMIN 3.7 g/dL (3.4-5.0); ALKALINE PHOSPHATASE 74 U/L (30-120); ALT (SGPT) 26 U/L (10-68); BILIRUBIN - TOTAL 0.31 mg/dL (0.2-1.3); CKMB 2.1 U/L (0.0-3.6); CREATINE KINASE 38 UL (21-232); PRO BNP 1037 pg/mL (0-450); PROTEIN - SERUM 7.4 g/dL (6.4-8.2); TROPONIN-I < 0.017 ng/mL (0.000-0.060)
[2019-08-01] MEDS ORDERED: COLACE100 MG PO (19:22)
[2019-08-01] MEDS ORDERED: KLOR-CON M2020 MEQ PO (19:23)
[2019-08-01] MEDS ORDERED: LASIX40 MG PO (19:24)
[2019-08-01] MEDS ORDERED: COUMADIN7.5 MG PO (19:25)
[2019-08-01] MEDS ORDERED: COUMADIN6 MG PO (19:26)
[2019-08-01 19:48] VITALS: BP 166/74
[2019-08-01 21:32] VITALS: Ht 175.3 cm; Wt 64.1 kg
--- NOTE | 2019-08-01 23:12 | NUR ---
PAGED ELISA UP APN, REGARDING ELEVATED D. DIMER. AWAITING RETURN CALL.
[2019-08-01 23:20] LABS: CREATINE KINASE 31 UL (21-232); MAGNESIUM - SERUM 1.9 mg/dL (1.8-2.4); TROPONIN-I 0.016 ng/mL (0.000-0.060)
--- NOTE | 2019-08-01 23:47 | NUR ---
SECOND PAGE TO ELISA UP APN, REGARDING ELEVATED D. DIMER. AWAITING RETURN CALL.
--- NOTE | 2019-08-01 23:50 | NUR ---
RECEIVED RETURN CALL FROM ELISA UP APN. NO NEW ORDERS GIVEN AT THIS TIME
--- NOTE | 2019-08-02 00:11 | NUR ---
RECEIVED CALL FROM RADIOLOGY. THEY ARE BUMPING PATIENTS CTA TO AM DUE TO PATIENT HAVING CONTRAST ALREADY TONIGHT.
[2019-08-02 00:12] VITALS: BP 124/65
[2019-08-02 04:55] VITALS: BP 117/72
[2019-08-02 06:30] LABS: BASOPHILS 0 % (0-2); EOSINOPHILS 7.9 % (0-7); HEMATOCRIT 38.9 % (42.0-54.0); IMMATURE GRANULOCYTES 0.3 % (0-5); LYMPHOCYTES 14.1 % (15-50); MCH 32.6 pg (26.0-34.0); MCHC 30.8 g/dL (31.0-37.0); MCV 105.7 fL (80.0-100.0); MEAN PLATELET VOLUME 10.2 fL (7.4-10.4); MONOCYTES 7.9 % (2-11); NEUTROPHILS 69.8 % (40-80); PLATELET COUNT 113 10x3/uL (130-400); RBC 3.68 10x6/uL (4.20-6.10); RDW 13.7 % (11.5-14.5); WBC 3.7 10x3/uL (4.8-10.8)
[2019-08-02 07:10] LABS: ALBUMIN 2.9 g/dL (3.4-5.0); ALKALINE PHOSPHATASE 55 U/L (30-120); ALT (SGPT) 21 U/L (10-68); BILIRUBIN - TOTAL 0.36 mg/dL (0.2-1.3); CALC OSMOLALITY 289 mosm/kg (275-300); CALCIUM 9.2 mg/dL (8.5-10.1); CARBON DIOXIDE 38.6 mmol/L (21.0-32.0); CHLORIDE - SERUM 107 mmol/L (98-107); CKMB 1.4 U/L (0.0-3.6); CREATINE KINASE 26 UL (21-232); CREATININE - SERUM 0.7 mg/dL (0.6-1.3); GLUCOSE 90 mg/dL (74-106); MAGNESIUM - SERUM 2.1 mg/dL (1.8-2.4); POTASSIUM - SERUM 4.2 mmol/L (3.5-5.1); PROTEIN - SERUM 5.7 g/dL (6.4-8.2); SODIUM 145 mmol/L (136-145); TROPONIN-I < 0.017 ng/mL (0.000-0.060); UREA NITROGEN 16 mg/dL (7-18); eGFR NON AFRICAN AMERICAN > 90 mL/min (90-120)
[2019-08-02 07:22] LABS: INR 2.46 (0.85-1.17); PROTIME 26.3 SECONDS (11.6-15.0)
[2019-08-02 09:53] VITALS: BP 126/72
[2019-08-02 11:00] LABS: CKMB 1.5 U/L (0.0-3.6); CREATINE KINASE 28 UL (21-232)
[2019-08-02 13:30] LABS: BILIRUBIN NEGATIVE (NEGATIVE); EPITHELIAL CELLS NSEEN /hpf (0-5); GLUCOSE NEGATIVE (NEGATIVE); KETONE NEGATIVE (NEGATIVE); NITRITE NEGATIVE (NEGATIVE); RED CELLS - URINE 0-5 /hpf (0-5); UROBILINOGEN NORMAL (NORMAL); WHITE CELLS - URINE 0-5 /hpf (NEGATIVE)
[2019-08-02 13:31] LABS: BACTERIA FEW /hpf (NEGATIVE)
[2019-08-02 13:33] VITALS: BP 127/60
--- NOTE | 2019-08-02 17:37 | NUR ---
DC EDUCATION PROVIDED TO PT AND PT FAMILY. MED REC PROVIDED FU WITH DR HERRING, DR CORRALES AND DR EASTMAN DISCUSSED WITH PT AND PT . PIV DC'D CATH TIP INTACT.
== END 2019-08-02 17:39 | disposition home or self-care (01) | DRG 187 ==
LOC: D.ER 15:57 → D.M2 17:28
PROVIDERS: Family Medicine; ADMIT Emergency Medicine; ATTEND Emergency Medicine
DX: J90 Pleural effusion, not elsewhere classified (principal); I48.20 Chronic atrial fibrillation, unspecified; J98.11 Atelectasis; D72.819 Decreased white blood cell count, unspecified; D75.89 Other specified diseases of blood and blood-forming organs; D69.6 Thrombocytopenia, unspecified; J44.9 Chronic obstructive pulmonary disease, unspecified; I10 Essential (primary) hypertension; E11.51 Type 2 diabetes mellitus with diabetic peripheral angiopathy without gangrene; Z79.01 Long term (current) use of anticoagulants; I25.10 Atherosclerotic heart disease of native coronary artery without angina pectoris; N40.0 Benign prostatic hyperplasia without lower urinary tract symptoms; J47.9 Bronchiectasis, uncomplicated; E78.5 Hyperlipidemia, unspecified

== ENCOUNTER → 2019-09-18 10:43 | Outpatient (CLI) | payer MEDICARE ==
[~2019-09-18 10:43] MED LIST changes: +COUMADIN7.5 MG PO
== END | disposition home or self-care (01) ==
LOC: D.LAB 10:43
PROVIDERS: ATTEND Internal Medicine Pulmonary Disease
DX: Z11.59 Encounter for screening for other viral diseases (principal)

== ENCOUNTER → 2019-09-20 10:34 | Outpatient (CLI) | payer MEDICARE | END | disposition home or self-care (01) | LOC: D.RT 10:34 | PROVIDERS: ATTEND Internal Medicine Pulmonary Disease | DX: R06.09 Other forms of dyspnea (principal) ==

== ENCOUNTER → 2019-09-26 14:48 | Outpatient (CLI) | payer MEDICARE | END | disposition home or self-care (01) | LOC: D.RAD 14:48 | PROVIDERS: ATTEND Internal Medicine Pulmonary Disease | DX: J90 Pleural effusion, not elsewhere classified (principal) ==

== ENCOUNTER → 2019-11-06 11:58 | Outpatient (CLI) | payer MEDICARE | END | disposition home or self-care (01) | LOC: D.RAD 11:58 | PROVIDERS: ATTEND Internal Medicine Cardiovascular Disease | DX: R06.00 Dyspnea, unspecified (principal) ==